=== PATIENT | male | born 2000 | race Caucasian/White ===

== ENCOUNTER 2019-05-07 01:46 | Emergency (ER) | payer SELFPAY ==
[~2019-05-07] VITALS: Ht 188 cm; Wt 84.1 kg
[2019-05-07 01:49] VITALS: Ht 188 cm; Wt 84.1 kg
[2019-05-07 02:51] LABS: APPEARANCE CLEAR (CLEAR); BILIRUBIN NEGATIVE (NEGATIVE); COLOR YELLOW (YELLOW); GLUCOSE NEGATIVE (NEGATIVE); KETONE NEGATIVE (NEGATIVE); NITRITE NEGATIVE (NEGATIVE); PROTEIN NEGATIVE (NEGATIVE); UROBILINOGEN NORMAL (NORMAL)
[2019-05-07 04:49] VITALS: BP 130/48
== END 2019-05-07 04:50 | disposition home or self-care (01) ==
LOC: D.ER 01:46
PROVIDERS: Family Medicine
DX: R10.9 Unspecified abdominal pain (principal)